=== PATIENT | male | born 1975 | race Caucasian/White ===

== ENCOUNTER 2018-12-18 22:23 | Emergency (ER) | payer BC, MEDICAID ==
[~2018-12-18] VITALS: Ht 188 cm; Wt 99.8 kg
[2018-12-18 22:54] VITALS: BP 133/86
[2018-12-19] MEDS ORDERED: SULFAMETH/TRIMETH 800/160 MG 1 UDTAB TABLET PO ONE ×2 (00:07)
[2018-12-19] MEDS ORDERED: CEPHALEXIN MONOHYDRATE 500 MG CAPSULE PO ONE ×2 (00:07)
[2018-12-19] MEDS ORDERED: TDAP [DIPH/PERTUSSIS/TET] 0.5 ML VIAL IM ONE ×2 (00:07)
== END 2018-12-19 00:19 | disposition home or self-care (01) ==
LOC: ER 22:29
DX: S80.11XA Contusion of right lower leg, initial encounter (principal); L08.89 Other specified local infections of the skin and subcutaneous tissue; F17.210 Nicotine dependence, cigarettes, uncomplicated; F10.10 Alcohol abuse, uncomplicated; Y90.9 Presence of alcohol in blood, level not specified; Z88.0 Allergy status to penicillin; W18.09XA Striking against other object with subsequent fall, initial encounter; Y93.89 Activity, other specified; Y92.89 Other specified places as the place of occurrence of the external cause; Y99.8 Other external cause status
CPT/HCPCS: 82962-TC; 90715

== ENCOUNTER 2018-12-21 12:34 | Emergency (ER) | payer BC, MEDICAID ==
[~2018-12-21] VITALS: Ht 185.4 cm; Wt 98.9 kg
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
[2018-12-21] MEDS ORDERED: LIDOCAINE 1% INJ 50 ML MDV IJ ONE (13:20)
[2018-12-21] MEDS ORDERED: CEFTRIAXONE 1 G VIAL ONE (13:21)
[2018-12-21] MEDS ORDERED: LIDOCAINE /MPF 1% VIAL 5 ML VIAL ONE (13:22)
[2018-12-21] MEDS ORDERED: CEFTRIAXONE 1 G VIAL IM ONE (13:30)
[2018-12-21] MEDS ORDERED: IBUPROFEN 600 MG TABLET PO ONE ×2 (13:39→14:00)
--- NOTE | 2018-12-21 13:57 | NUR ---
PT TOLERATED I AND D DRESSING APPLIED . RT DELTOID IM MED PER
--- NOTE | 2018-12-21 13:57 | NUR ---
PT. VERBALIZED UNDERSTANDING OF AFTERCARE INSTRUCTIONS.
[2018-12-21 13:59] VITALS: BP 128/74
== END 2018-12-21 14:00 | disposition home or self-care (01) ==
LOC: ER 12:37
DX: S80.11XA Contusion of right lower leg, initial encounter (principal); L03.115 Cellulitis of right lower limb; B99.8 Other infectious disease; F10.10 Alcohol abuse, uncomplicated; F17.210 Nicotine dependence, cigarettes, uncomplicated; Y90.9 Presence of alcohol in blood, level not specified; Z88.0 Allergy status to penicillin; W22.01XA Walked into wall, initial encounter; Y93.89 Activity, other specified; Y92.89 Other specified places as the place of occurrence of the external cause; Y99.8 Other external cause status
CPT/HCPCS: 10060; 96372; 99283; A4606; A6402; A6403 ×2; A6407; J0696; J3490 ×2

== ENCOUNTER 2018-12-23 13:14 | Emergency (ER) | payer BC, MEDICAID, OTHER ==
[~2018-12-23] VITALS: Ht 188 cm; Wt 79.4 kg
[2018-12-23 13:41] VITALS: BP 145/74
== END 2018-12-23 14:12 | disposition home or self-care (01) ==
LOC: ER 13:16
DX: Z48.01 Encounter for change or removal of surgical wound dressing (principal); F17.210 Nicotine dependence, cigarettes, uncomplicated; Z88.0 Allergy status to penicillin
CPT/HCPCS: 99281; A4606; Z7502